=== PATIENT | female | born 1975 | race Caucasian/White ===

== ENCOUNTER 2019-03-10 15:21 | Emergency (ER) | payer BC ==
[2019-03-10] MEDS ORDERED: Sodium Chloride 0.9% 1,000 ML IV SCH (15:45)
[2019-03-10] MEDS ORDERED: Ondansetron 4 MG/2 ML SDV IVPUSH ONE (15:45)
[2019-03-10] MEDS ORDERED: Sodium Chloride 0.9% 10 ML Syringe FLUSH PRN (15:45)
[2019-03-10] MEDS ORDERED: Ketorolac 30 MG/ML SDV IVPUSH ONE (15:47)
[2019-03-10] MEDS ORDERED: HYDROmorphone 0.5 MG/0.5 ML Syringe IVPUSH ONE ×2 (15:47→17:51)
--- NOTE | 2019-03-10 16:15 | EDM.PDOC ---
ED HPI GENERAL MEDICAL PROBLEM - General Chief Complaint: Flank Pain Stated Complaint: KIDNEY PAIN Time Seen by Provider: 03/10/19 15:37 Source of Information: Reports: Patient History Limitations: Reports: No Limitations - History of Present Illness INITIAL COMMENTS - FREE TEXT/NARRATIVE: The patient presents with left flank pain. This started this morning. She has some nausea and vomiting. He has no dysuria or hematuria. She has no history of kidney stones but her sister does. She has no fever or chills. She has no chest pain or shortness of breath. She had a hysterectomy. She has no history of appendectomy or cholecystectomy. She has a little cramping above the pelvis at times. Onset: Sudden Duration: Hour(s): Location: Reports: Back (Left flank) Quality: Reports: Sharp Severity: Severe Improves with: Reports: None Worsens with: Reports: None Associated Symptoms: Reports: Nausea/Vomiting. Denies: Chest Pain, Cough, Fever /Chills, Headaches, Shortness of Breath Left Flank Pain Score (Numeric/FACES): 8 - Related Data Allergies Allergy/AdvReac Type Severity Reaction Status Date / Time acetaminophen [From Vicodin] Allergy Rash Verified 03/10/19 15:40 amoxicillin Allergy Anaphylactic Verified 03/10/19 15:40 Shock hydrocodone [From Vicodin] Allergy Rash Verified 03/10/19 15:40 Penicillins Allergy Swelling Verified 03/10/19 15:40 Home Meds: Home Meds ClonazePAM [KlonoPIN] 0.5 mg PO DAILY 03/10/19 [History] Escitalopram [Lexapro] 10 mg PO DAILY 03/10/19 [History] Hydrocodone/Acetaminophen [Hydrocodon-Acetaminophen 5-325] 1 - 2 each PO Q6HR PRN #20 tablet 03/10/19 [Rx] Tamsulosin HCl [Flomax] 0.4 mg PO DAILY #7 cap.er.24h 03/10/19 [Rx] Past Medical History [employer] History: Reports: Psychiatric History: Reports: Anxiety Social & Family History - Tobacco Use Smoking Status *Q: Never Smoker ED ROS GENERAL - Review of Systems Review Of Systems: See Below Constitutional: Reports: No Symptoms HEENT: Reports: No Symptoms Respiratory: Reports: No Symptoms Cardiovascular: Reports: No Symptoms Endocrine: Reports: No Symptoms GI/Abdominal: Reports: Abdominal Pain, Nausea, Vomiting : Reports: Flank Pain (Left) Musculoskeletal: Reports: No Symptoms Skin: Reports: No Symptoms Neurological: Reports: No Symptoms ED EXAM, RENAL/ - Physical Exam Exam: See Below Exam Limited By: No Limitations General Appearance: Alert, No Apparent Distress Ears: Normal External Exam Nose: Normal Inspection Head: Atraumatic, Normocephalic Neck: Normal Inspection Respiratory/Chest: No Respiratory Distress, Lungs Clear, Normal Breath Sounds Cardiovascular: Regular Rate, Rhythm, No Edema, No Murmur GI/Abdominal: Soft, Non-Tender, No Organomegaly, No Mass Back Exam: No: CVA Tenderness (L) Course - Vital Signs Last Recorded V/S: Last Vital Signs Temp 97.5 F 03/10/19 15:36 Pulse 79 03/10/19 15:36 Resp 16 03/10/19 15:36 BP 158/93 H 03/10/19 15:36 Pulse Ox 98 03/10/19 15:36 - Orders/Labs/Meds Orders: Active Orders 24 hr Category Date Time Status Peripheral IV Care [RC] . DIRECTED Care 03/10/19 15:46 Active Sodium Chloride 0.9% [Normal Saline] 1,000 ml Med 03/10/19 15:45 Active IV ASDIRECTED Sodium Chloride 0.9% [Saline Flush] Med 03/10/19 15:45 Active 10 ml FLUSH ASDIRECTED PRN ED Antiemetic Medication Reflex [OM.PC] Stat Oth 03/10/19 15:46 Ordered Peripheral IV Insertion Adult [OM.PC] Stat Oth 03/10/19 15:45 Ordered Medication Orders Sodium Chloride (Normal Saline) 1,000 mls @ 125 mls/hr IV ASDIRECTED JERAMY Last Admin: 03/10/19 16:35 Dose: 125 mls/hr Sodium Chloride (Saline Flush) 10 ml FLUSH ASDIRECTED PRN PRN Reason: Keep Vein Open Last Admin: 03/10/19 16:36 Dose: 10 ml Labs: Laboratory Tests 03/10/19 03/10/19 03/10/19 Range/Units 16:30 17:05 17:05 WBC 10.42 H (3.98-10.04) K/mm3 RBC 4.80 (3.98-5.22) M/mm3 Hgb 13.8 (11.2-15.7) gm/dl Hct 41.3 (34.1-44.9) % MCV 86.0 (79.4-94.8) fl MCH 28.8 (25.6-32.2) pg MCHC 33.4 (32.2-35.5) g/dl RDW Std Deviation 40.5 (36.4-46.3) fL Plt Count 281 (182-369) K/mm3 MPV 10.7 (9.4-12.3) fl Neut % (Auto) 76.9 H (34.0-71.1) % Lymph % (Auto) 13.0 L (19.3-51.7) % [place] % (Auto) 8.0 (4.7-12.5) % Eos % (Auto) 1.2 (0.7-5.8) Baso % (Auto) 0.8 (0.1-1.2) % Neut # (Auto) 8.03 H (1.56-6.13) K/mm3 Lymph # (Auto) 1.35 (1.18-3.74) K/mm3 [place] # (Auto) 0.83 H (0.24-0.36) K/mm3 Eos # (Auto) 0.12 (0.04-0.36) K/mm3 Baso # (Auto) 0.08 (0.01-0.08) K/mm3 Manual Slide Review Normal smear Sodium 141 (136-145) mEq/L Potassium 3.6 (3.5-5.1) mEq/L Chloride 105 (98-107) mEq/L Carbon Dioxide 26 (21-32) mEq/L Anion Gap 13.6 (5-15) BUN 13 (7-18) mg/dL Creatinine 0.9 (0.55-1.02) mg/dL Est Cr Clr Drug Dosing 71.78 mL/min Estimated GFR (MDRD) > 60 (>60) mL/min BUN/Creatinine Ratio 14.4 (14-18) Glucose 93 (74-106) mg/dL Calcium 8.6 (8.5-10.1) mg/dL Total Bilirubin 0.4 (0.2-1.0) mg/dL AST 17 (15-37) U/L ALT 36 (14-59) U/L Alkaline Phosphatase 62 (46-116) U/L Total Protein 7.6 (6.4-8.2) g/dl Albumin 4.0 (3.4-5.0) g/dl Globulin 3.6 gm/dL Albumin/Globulin Ratio 1.1 (1-2) Lipase 150 (73-393) U/L Urine Color Yellow (Yellow) Urine Appearance Slt cloudy H (Clear) Urine pH 7.5 (5.0-8.0) Ur Specific [place] 1.025 (1.005-1.030) Urine Protein 1+ H (Negative) Urine Glucose (UA) Negative (Negative) Urine Ketones Negative (Negative) Urine Occult Blood 3+ H (Negative) Urine Nitrite Negative (Negative) Urine Bilirubin Negative (Negative) Urine Urobilinogen 0.2 (0.2-1.0) Ur Leukocyte Esterase Negative (Negative) Urine RBC >100 H (0-5) /hpf Urine WBC 0-5 (0-5) /hpf Ur Squamous Epith Cells 30-40 H (0-5) /hpf Urine Bacteria Few (FEW) /hpf Urine Mucus Not seen (FEW) /hpf Meds: Medications Generic Name Dose Route Start Last Admin Trade Name Freq PRN Reason Stop Dose Admin Sodium Chloride 1,000 mls @ 125 mls/hr 03/10/19 15:45 03/10/19 16:35 Normal Saline IV 125 mls/hr ASDIRECTED JERAMY Administration Sodium Chloride 10 ml 03/10/19 15:45 03/10/19 16:36 Saline Flush FLUSH 10 ml ASDIRECTED PRN Administration Keep Vein Open Discontinued Medications Generic Name Dose Route Start Last Admin Trade Name Freq PRN Reason Stop Dose Admin Hydromorphone HCl 0.5 mg 03/10/19 15:47 03/10/19 16:37 Dilaudid IVPUSH 03/10/19 15:48 0.5 mg ONETIME ONE Administration Ketorolac Tromethamine 30 mg 03/10/19 15:47 03/10/19 16:36 Toradol IVPUSH 03/10/19 15:48 30 mg ONETIME ONE Administration Ondansetron HCl 4 mg 03/10/19 15:45 03/10/19 16:36 Zofran IVPUSH 03/10/19 15:46 4 mg ONETIME ONE Administration - Re-Assessments/Exams Free Text/Narrative Re-Assessment/Exam: 03/10/19 16:15 I ordered an IV NS at 125ml/hr, zofran 4mg IV, toradol 30mg IV, dilaudid 0.5mg IV, labs, UA and a CT of her abdomen and pelvis without contrast to look for a kidney stone. 03/10/19 17:[address] shows a 3.6mm partially obstructing stone within the distal left ureter located 4-5cm proximal to the UVJ. Cortical calcifications within the upper right kidney with nonobstructing 3.2mm stone within the left kidney. 3.2 mm nodule within the right lower lung. If patient is not a smoker, this can be ignored. If patient is a smoker, recommend noncontrast follow-up chest x-ray in one year. Other findings believed to be incidental as described above. Her CBC and CMP look good. Her UA shows no UTI but she does have blood. 03/10/19 17:54 She still has some pain. I will give her another dose of dilaudid 0.5mg IV. I will get her on some hydrocodone and flomax and give her a strainer. Departure - Departure Time of Disposition: 18:00 Disposition: Home, Self-Care 01 Condition: Good Clinical Impression: Ureteric colic, Ureteral calculus, left, Kidney stone on left side - Discharge Information *PRESCRIPTION DRUG MONITORING PROGRAM REVIEWED*: No *COPY OF PRESCRIPTION DRUG MONITORING REPORT IN PATIENT JULIETA: No Prescriptions: Hydrocodone/Acetaminophen [Hydrocodon-Acetaminophen 5-325] 1 - 2 each PO Q6HR PRN #20 tablet PRN Reason: Pain Tamsulosin HCl [Flomax] 0.4 mg PO DAILY #7 cap.er.24h Referrals: Asia Jones NP [Primary Care Provider] - 1 Week José Miguel Farley MD [Ordering Only Provider] - 1 Week Forms: ED Department Discharge Additional Instructions: Drink plenty of fluids. Take the flomax daily. Take tylenol or motrin for pain. If that does not help try the hydrocodone. Please return if you are worse. Follow up with Dr Farley if you do not pass the stone within a week. Sepsis Event Note - Evaluation Sepsis Screening Result: No Definite Risk - Focused Exam Vital Signs: Vital Signs Temp Pulse Resp BP Pulse Ox 03/10/19 15:36 97.5 F 79 16 158/93 H 98 Date Exam was Performed: 03/10/19 Time Exam was Performed: 17:49 - My Orders Last 24 Hours: My Active Orders 03/10/19 15:45 Sodium Chloride 0.9% [Normal Saline] 1,000 ml IV ASDIRECTED Sodium Chloride 0.9% [Saline Flush] 10 ml FLUSH ASDIRECTED PRN Peripheral IV Insertion Adult [OM.PC] Stat 03/10/19 15:46 Peripheral IV Care [RC] . DIRECTED ED Antiemetic Medication Reflex [OM.PC] Stat - Assessment/Plan Last 24 Hours: My Active Orders 03/10/19 15:45 Sodium Chloride 0.9% [Normal Saline] 1,000 ml IV ASDIRECTED Sodium Chloride 0.9% [Saline Flush] 10 ml FLUSH ASDIRECTED PRN Peripheral IV Insertion Adult [OM.PC] Stat 03/10/19 15:46 Peripheral IV Care [RC] . DIRECTED ED Antiemetic Medication Reflex [OM.PC] Stat
--- NOTE | 2019-03-10 16:24 | CT ---
CT abdomen and pelvis Technique: Multiple axial sections were obtained from above the dome of the diaphragm inferiorly through the pubic symphysis. Intravenous and oral contrast not utilized. Study performed as a ureteral stone protocol. Comparison: No prior abdominal imaging. Findings: Left ureter is slightly prominent. This finding is felt to be caused by an obstructing distal left partially obstructing ureteral stone measuring about 3.6 mm in size. No other abnormal calcifications are seen along the course of the ureters. Cortical calcifications are seen within the upper right kidney. Nonobstructing stone is noted within the lower left kidney measuring 3.2 mm in size. Small nodule is noted within the right lower lung measuring 3.2 mm. Minimal atelectasis is noted within both lung bases. Noncontrast appearance of the liver shows no focal parenchymal abnormality. Gallbladder contains no calcified gallstones. Spleen appears within normal limits. Adrenal glands show no nodule. Pancreas is within normal limits. Aorta shows no aneurysm. No retroperitoneal adenopathy or mesenteric abnormality is seen. Appendix is seen which is normal in size. No pelvic mass or adenopathy is noted. No free fluid or inflammatory change is seen. Bone window settings were reviewed which appear within normal limits for the patient's age. Small fat-containing umbilical hernia is seen. Impression: 1. 3.6 mm partially obstructing stone within the distal left ureter located about 4-5 cm proximal to the UVJ. 2. Cortical calcifications within the upper right kidney with nonobstructing 3.2 mm stone within the lower left kidney. 3. 3.2 mm nodule within the right lower lung. If patient is not a smoker, this can be ignored. If patient is a smoker, recommend noncontrast follow-up chest x-ray in one year. 4. Other findings believed to be incidental as described above. Diagnostic code #3 This report was dictated in [place] Standard Time
== END 2019-03-10 18:30 | disposition home or self-care (01) ==
LOC: JD.ED 15:21
DX: N20.2 Calculus of kidney with calculus of ureter (principal); F41.9 Anxiety disorder, unspecified; Z88.1 Allergy status to other antibiotic agents; Z88.0 Allergy status to penicillin; Z88.5 Allergy status to narcotic agent; Z88.8 Allergy status to other drugs, medicaments and biological substances; Z79.899 Other long term (current) drug therapy
CPT/HCPCS: 36415; 74176; 80053; 81001; 83690; 85025; 96361; 96374; 96375; 96376; 99284; J1170; J1885; J2405; J7030

== ENCOUNTER 2024-02-02 14:26 | Emergency (ER) | payer BC | END 2024-02-02 16:35 | disposition home or self-care (01) | LOC: JD.ED 14:26 | DX: S52.615A Nondisplaced fracture of left ulna styloid process, initial encounter for closed fracture (principal); S52.502A Unspecified fracture of the lower end of left radius, initial encounter for closed fracture; Z79.899 Other long term (current) drug therapy; Z88.0 Allergy status to penicillin; Z88.5 Allergy status to narcotic agent; W11.XXXA Fall on and from ladder, initial encounter | CPT/HCPCS: 29125; 73110-26-LT; 73110-LT; 99283; 99283-25 ==